=== PATIENT | male | born 1965 | race Caucasian/White ===

== ENCOUNTER 2017-10-31 18:34 | Inpatient (IN) | payer OTHER ==
[~2017-10-31] VITALS: Ht 175.2 cm; Wt 109.1 kg
--- NOTE | ~2017-10-31 | CON ---
[place], [place] REPORT OF CONSULTATION NAME: DEVIN MORGAN UNIT #: [id number] ROOM: [place] [address] DOCTOR: GRICELDA ABRAHAM MD BIRTHDATE: [birth year] DOS: 11/02/2017 CHIEF COMPLAINT: "Doc, I researched how to kill myself, I was going to do it." HISTORY OF PRESENT ILLNESS: This is a 52-year-old white male who reports that he came to the hospital to prevent himself from committing suicide. He has been feeling very depressed for several months now. He denies previous psychiatric intervention. There are no previous psych hospitalizations and he has never been on any antidepressants. He traces much of his problems to his history of alcohol abuse and states that he has lost many friends jobs, etc. because of his alcohol abuse. 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 Additionally, he has had strong suicidal thoughts with a plan. He did tie a belt around his neck, but could not figure out how to hang himself with it. He also researched online how to make a toxic mixture of chemicals and was going to go to the store and buy them until he decided that he needed to reach out and get help. He is very motivated per his report at this time to turn things around. PAST MEDICAL HISTORY: Remarkable for coronary artery disease and a history of both cocaine and marijuana abuse along with the alcohol abuse. MENTAL STATUS: The patient is alert and oriented. Mood is overwhelmingly depressed. Affect is flat and blunted with a constricted range. He endorses multiple neurovegetative symptoms and positive suicidal thoughts and a plan. There is no jordan or hypomania. There are no overt auditory or visual hallucinations. No delusions, no paranoia. Short, intermediate and long-term memories are fully intact. DIAGNOSIS: Major depression, recurrent. PLAN: I will start him on Remeron 15 mg at bedtime as an antidepressant that will rapidly improve sleep and appetite. I will add Vistaril 50 mg t.i.d. to decrease his anxiety without utilizing a benzodiazepine. Screening examinations on admission shows him to have a low vitamin D level, so I will go ahead and order vitamin D 50,000 International Units weekly. Would suggest that you reach out to the local general psychiatric units to find an appropriate placement for him and have him admitted there. [place], [place] REPORT OF CONSULTATION NAME: DEVIN MORGAN UNIT #: [id number] ROOM: [place] [address] DOCTOR: GRICELDA ABRAHAM MD BIRTHDATE: [birth year] GRICELDA ABRAHAM MD CM:CONSTR:REPORT OF CONSULTATION 1001 11/02/17 1032 interface
--- NOTE | ~2017-10-31 | CON ---
[place], [place] REPORT OF CONSULTATION NAME: DEVIN MORGAN UNIT #: [id number] ROOM: [place] [address] DOCTOR: FANTA STEARNS,ENRICO BIRTHDATE: [birth year] DOS: CHIEF COMPLAINT: "I don't feel safe if discharged." HISTORY OF PRESENT ILLNESS: The patient is a 52-year-old male admitted to ICU with depression and suicidal ideation with plan and intent to hang himself or use some chemicals to kill himself. He was seen by Dr. Moody yesterday and is started on Remeron. Today, I saw him again. He is still very depressed, still suicidal with a plan and intent and he does not contract for safety. Dr. Moody had recommended admission to a psych unit for his safety and stabilization. MENTAL STATUS EXAMINATION: The patient is lying in bed, readily engaged in conversation, fair eye contact. Mood overwhelmingly depressed. Affect blunted, constricted and no evidence of psychosis, still feeling hopeless and has suicidal ideation with intent and plan to hang himself or use chemicals and he cannot contract for safety. PLAN: The patient needs inpatient care for his safety and stabilization on meds, also address his alcohol use. He might need rehab for his alcohol dependence. Spoke to the staff and they are trying to get him to [facility] and they are working on getting him admitted. ENRICO JEWELL MD CM:CONSTR:REPORT OF CONSULTATION 1022 11/03/17 1037 interface
--- NOTE | ~2017-10-31 | CON ---
[place], [place] REPORT OF CONSULTATION NAME: DEVIN MORGAN UNIT #: [id number] ROOM: [place] [address] DOCTOR: CAMI LANDAEVRDE BIRTHDATE: [birth year] DOS: 11/06/2017 CHIEF COMPLAINT: Suicidal ideation. HISTORY OF PRESENT ILLNESS: The patient is a 52-year-old male who came to the Emergency Room on 10/31/2017 reporting he was syncopal earlier in the day. He reported he was on his couch and the next thing he knew he woke up and he was lying on the floor and knocked his table over. He did admit to numbness and tingling in his left arm and left leg along with left-sided chest pain. He did report he has had these symptoms in the past and they had been worked up at another hospital in [place] and there was a heart blockage, but he opted for medical treatment. He reports he did stop taking his cardiac medications about a year ago. The patient reports that he moved to this area "a while ago." He stated there is nothing here for him. 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 He stated after being fired from the bar, he stopped drinking 8 days prior to being admitted. He reports he has dealt with depression his entire life and has been treated for it; however, was unsure of where he had been treated. He states that if discharged from the hospital, he would commit suicide at this time. He stated he has looked online for several different options of ways to kill himself including putting a belt around his neck, which he had tried, but could not figure out how to hang up to the ceiling. He also admits to looking up for a lethal mixture of ammonia and bleach and how quickly that would kill him if the belt did not work. He also admits to looking into how to properly seal a bag over his head, so he would not be able to breathe if the other two options failed. At this time, he is suicidal. He admits to ideations. He has plans and backup plans for ending his life if discharged from the hospital. I do not believe he is safe to be discharged from the hospital. I did contact , nurse practitioner and leave her my opinion. DIAGNOSES: Suicidal ideation, major depressive disorder, severe. PAST MEDICAL HISTORY: Coronary artery disease, cocaine abuse, essential hypertension, hypercholesterolemia, marijuana abuse, neuropathy, and alcohol abuse. RECOMMENDATIONS: I recommend the patient remain inpatient at this time until proper placement can be found for treatment of his suicidal ideation. Nursing reports he has been polite and pleasant; however, with his elaborate plans and his definite answers of yes he would hurt himself upon discharge, he cannot be discharged to anywhere but an inpatient facility at this time. Thank you for the consultation. [place], [place] REPORT OF CONSULTATION NAME: DEVIN MORGAN UNIT #: [id number] ROOM: [place] [address] DOCTOR: CAMI LANDAVERDE BIRTHDATE: [birth year] MIKEY Andrade CM:CONSTR:REPORT OF CONSULTATION 1049 11/06/17 1126 interface
--- NOTE | ~2017-10-31 | ST ---
[place], [place] EXERCISE STRESS TEST REPORT [id number] UNIT #: [id number] ROOM: [place] [address] DOCTOR: TOMEKA POWELL MD BIRTHDATE: [birth year] DOS: 11/01/2017 REFERRING PHYSICIAN: Dr. Lange. INDICATION: Central chest pain. The patient then underwent standard protocol Lexiscan stress EKG. The patient's baseline EKG shows normal sinus rhythm with right bundle branch block and nonspecific ST-T wave changes. The patient's baseline heart rate is 86 with blood pressure 130/90. The patient's peak heart rate was 111 with a blood pressure of 130/76. The patient denied chest pain. No arrhythmias were noted. No EKG changes were noted. SUMMARY OF FINDINGS: Benign Lexiscan stress EKG. Please see separate report for perfusion scan results. TOMEKA POWELL MD CM:STRESS:EXERCISE STRESS TEST REPORT [id number] TOMEKA POWELL MD
[~2017-10-31 18:34] MED LIST: ALBUTEROL0.09 MG/A2 IH; CATAFLAM50 MG PO; CIPRO500 MG PO; DOXYCYCLINE100 M3 PO; METOPROLOL25 MG PO; MUCINEX600 MG PO; NATURE'S BLEND F1 MG PO; NKHM; VICODIN 5/500 505 MG PO
[2017-10-31 18:38] VITALS: BP 174/95
[2017-10-31 19:16] LABS: BASO # 0.1 10*3/uL (0.0-0.1); BASO % 0.9 % (0.0-1.0); EOS # 0.2 10*3/uL (0.0-0.4); EOS % 2.5 % (1.0-4.0); LYMPH # 1.5 10*3/uL (1.3-4.4); LYMPH % 21.6 % (27.0-41.0); MEAN CELL VOLUME 89.9 fl (80.0-94.0); MEAN CORPUSCULAR HGB 31.8 pg (27.0-31.0); MEAN CORPUSCULAR HGB CONC 35.4 g/dl (33.0-37.0); MEAN PLATELET VOLUME 9.8 fl (9.6-12.3); MONO # 0.7 10*3/uL (0.1-1.0); MONO % 9.7 % (3.0-9.0); NEUT # 4.4 10*3/uL (2.3-7.9); NEUT % 64.9 % (47.0-73.0); PLATELET COUNT AUTOMATED 202 10*3/uL (130-400); RED BLOOD COUNT 5.34 10*6/uL (4.50-5.90); RED CELL DISTRI WIDTH 12.6 % (0-14.5); WHITE BLOOD COUNT 6.7 10*3/uL (4.8-10.8)
[2017-10-31 19:25] LABS: INTERNATIONAL NORM RATIO 1.1 (2.0-3.5)
[2017-10-31 19:33] LABS: ALBUMIN 3.9 gm/dl (3.1-4.5); ALKALINE PHOSPHATASE 68 U/L (45-117); BUN 8 mg/dl (7-24); CHLORIDE 104 mmol/L (98-107); LIPASE 191 U/L (73-393); SGOT/AST 53 IU/L (3-35); SGPT/ALT 97 U/L (12-78); SODIUM 138 mmol/L (136-145); TOTAL PROTEIN 8.2 gm/dL (6.4-8.2)
[2017-10-31 19:34] LABS: ACETAMINOPHEN (TYLENOL) < 2.0 ug/ml (10-30); ETHYL ALCOHOL < 3.0 mg/dl (<3); TROPONIN I < 0.015 ng/ml (<0.045)
[2017-10-31 21:38] VITALS: BP 128/98
[2017-10-31 21:47] LABS: BILIRUBIN NEGATIVE (NEGATIVE); BLOOD NEGATIVE (NEGATIVE); CLARITY SL CLOUDY (CLEAR); COLOR YELLOW (YELLOW); GLUCOSE NEGATIVE (NEGATIVE); KETONE NEGATIVE (NEGATIVE); LEUKO ESTERASE NEGATIVE (NEGATIVE); NITRITE NEGATIVE (NEGATIVE); SPECIFIC GRAVITY <= 1.005 (1.005-1.030); URINE AMPHETAMINES < 1000 (1000ng/ml); URINE BARBITURATES < 200 (200ng/ml); URINE BENZODIAZEPINES < 200 (200ng/ml); URINE CANNABINOIDS (THC) < 50 (50ng/ml); URINE COCAINE < 300 (300ng/ml); URINE METHADONE < 300 (300ng/ml); URINE OPIATES < 300 (300ng/ml); URINE PHENCYCLIDINE < 25 (25ng/ml); UROBILINOGEN 0.2 E.U./dl (0.2-1.0)
[2017-10-31 22:00] VITALS: BP 125/87; BP 146/104
--- NOTE | 2017-10-31 22:00 | NUR ---
A 52, admitted to ICCU, under the services of COSMO Jacinto DO with a diagnosis of SUCIDIAL IDEATIONS. Chief complaint is TINGLING IN LEFT ARM, THOUGHTS OF SUICIDE. Patient arrived via ambulatory from ER. Monitor applied. Initial assessment completed. Vital signs taken and recorded. COSMO JACINTO DO notified of admission to the unit. Orders received. See assessment for past medical history, medications and allergies. Patient and/or family oriented to unit. [facility]U visitation policy reviewed. Clothing/patient valuable form completed. IGNACIO KHOURY
[2017-10-31 22:09] LABS: BACTERIA TRACE; RBC 0-2 rbc/hpf (0-2)
--- NOTE | 2017-10-31 23:00 | NUR ---
PATIENT STILL HAS THOUGHTS OF SUICIDE. STATED HE WAS GETTING TOGETHER AMMONIA AND CLOREX TO DO IT WITH. WHEN ASKED IF HE WAS GOING TO BLOW THE HOUSE UP, HE STATED NO I WOULDNT BLOW ANYTHING UP TO HURT THE NEIGHBORS. 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 PATIENT STATED HE IS FEELING THE SAME HE DID 3.5YRS AGO WHEN HE HAD A HEART CATH DONE IN [facility], OTHER THAN HE DIDNT FEEL SUICIDAL WHILE IN [facility]. PATIENT DID MENTION AN X AND THATS WHY HE CAME BACK HERE.
[2017-11-01] VITALS: BP 120/84
[2017-11-01 04:00] VITALS: BP 127/70
[2017-11-01 06:25] LABS: BASO # 0.1 10*3/uL (0.0-0.1); EOS # 0.2 10*3/uL (0.0-0.4); EOS % 3.1 % (1.0-4.0); LYMPH # 1.7 10*3/uL (1.3-4.4); LYMPH % 29.3 % (27.0-41.0); MEAN CELL VOLUME 91.5 fl (80.0-94.0); MEAN CORPUSCULAR HGB 32.5 pg (27.0-31.0); MEAN CORPUSCULAR HGB CONC 35.5 g/dl (33.0-37.0); MEAN PLATELET VOLUME 10.4 fl (9.6-12.3); MONO # 0.7 10*3/uL (0.1-1.0); MONO % 11.4 % (3.0-9.0); NEUT # 3.2 10*3/uL (2.3-7.9); NEUT % 54.9 % (47.0-73.0); PLATELET COUNT AUTOMATED 202 10*3/uL (130-400); RED BLOOD COUNT 4.59 10*6/uL (4.50-5.90); RED CELL DISTRI WIDTH 12.7 % (0-14.5); WHITE BLOOD COUNT 5.9 10*3/uL (4.8-10.8)
--- NOTE | 2017-11-01 06:25 | NUR ---
CONTACTED [facility] FOR CONSULT TO DR. ABRAHAM. RN WILL NOTIFY
[2017-11-01 06:26] LABS: HEMOGLOBIN 14.9 g/dl (14.0-18.0)
[2017-11-01 06:31] LABS: ALBUMIN 3.1 gm/dl (3.1-4.5); ALKALINE PHOSPHATASE 56 U/L (45-117); BUN 7 mg/dl (7-24); CHLORIDE 108 mmol/L (98-107); CHOLESTEROL 127 mg/dL (<200); CREATININE 1.04 mg/dL (0.70-1.30); HDL CHOLESTEROL 29 mg/dl (40-60); LDL CHOLESTEROL 75 mg/dL (9-159); PHOSPHOROUS 2.4 mg/dL (2.5-4.9); POTASSIUM 3.5 mmol/L (3.5-5.1); SGOT/AST 38 IU/L (3-35); SGPT/ALT 76 U/L (12-78); SODIUM 140 mmol/L (136-145); TOTAL PROTEIN 6.8 gm/dL (6.4-8.2); TRIGLYCERIDES 113 mg/dl (<150); VLDL CHOLESTEROL 23 mg/dL (6-40)
[2017-11-01 06:35] LABS: ACT PARTIAL THROMBO TIME 24.7 SECONDS (20.8-31.5); INTERNATIONAL NORM RATIO 1.2 (2.0-3.5)
[2017-11-01 07:12] LABS: VITAMIN D, 25-HYDROXY 10.2 ng/mL (30-100)
[2017-11-01 08:00] VITALS: BP 132/93
--- NOTE | 2017-11-01 10:30 | NUR ---
PT TAKEN TO CARDIAC REHAB FOR STRESS TEST WITH DR POWELL.
--- NOTE | 2017-11-01 11:00 | NUR ---
INFORMED CONSENT OBTAINED FOR LEXISCAN NUCLEAR STRESS TEST WITH DR. POWELL. RESTING EKG RBBB WITH A RESTING HR OF 76 WITH BP OF 130/90. LUNGS CLEAR WITH SPO2 OF 98% ON ROOM AIR. PT COMPLETED A 1:00 LEXISCAN PROTOCOL RECEIVING LEXISCAN 0.4 MG IV OVER 10 SECONDS. HAD NO C/O FEELING OF SHORTNESS OF BREATH AND "WEIRD FEELING IN CHEST" THAT WAS RELIEVED IN RECOVERY. EKG NONDIAGNOSTIC WITH RBBB. HAD A PEAK 111 WITH BP OF 122/82. LAST RECOVERY HR OF 107 WITH BP OF 124/82. AWAITING SCANNING IN STABLE CONDITION.
--- NOTE | 2017-11-01 12:01 | NUR ---
PT REMAINS IN CARDIAC REHAB FOR STRESS TEST.
--- NOTE | 2017-11-01 12:10 | NUR ---
I LEFT A MESSAGE ON DR Karley ABRAHAM'S VOICE MAIL TO MAKE HIM AWARE OF CONSULT ORDER.
--- NOTE | 2017-11-01 12:30 | NUR ---
PT RETURNED TO ROOM FROM CARDIAC REHAB. DR ANDRADE IN TO SEE PT.
--- NOTE | 2017-11-01 15:49 | NUR ---
DR TRAMMELL UPDATED ON PT'S C/O STOMACH "BURNIMG". NEW ORDERS RECEIVED.
[2017-11-01 16:00] VITALS: BP 132/91
--- NOTE | 2017-11-01 16:25 | NUR ---
MEDICATED PT PER PRN ORDER WITH TYLENOL FOR C/O BACK PAIN THAT RATES 5/10 ON PAIN SCALE AND TUMS FOR C/O GI UPSET.
--- NOTE | 2017-11-01 17:27 | NUR ---
PT RESTING. EARLIER PRN MEDS EFFECTIVE.
[2017-11-01 20:00] VITALS: BP 130/83
--- NOTE | 2017-11-01 20:59 | NUR ---
24 HR chart check completed.
[2017-11-02] VITALS: BP 131/86
--- NOTE | 2017-11-02 03:00 | NUR ---
PATIENT WOKE UP COMPLAINTS OF WILD VIVID DREAMS. C/O FEELING CLAUSTROPHOBIC. CURTAINS FULLY OPENED. WILL CONTINUE TO MONITOR.
[2017-11-02 04:00] VITALS: BP 147/96
--- NOTE | 2017-11-02 07:50 | NUR ---
Shift chart check completed.
[2017-11-02 08:00] VITALS: BP 128/80
--- NOTE | 2017-11-02 08:12 | NUR ---
PATIENT SAID THAT HE HAD ANOTHER VERY VIVID DREAM LAST NIGHT. WHEN ASKED ABOUT IT HE SAID THAT IN THE DREAM HE WAS JUST AND IT WAS ALL BETTER. HE SAID IT FIXED EVERYTHING. PER THE PATIENT HE DID NOT SEE HOW HE JUST THAT HE WAS & IT WAS A SNESE OF COMFORT. PER THE PATIENT HE FEELS SAFE IN THE HOSPITAL BUT KNOWS THAT HE CANNOT DO THIS ON HIS OWN IF HE LEAVES. HE IS AFRAID IF HE LEAVES THAT HE WILL DO SOMETHING BECAUSE HE HAS NO JOB, HAS NO ONE TO CALL AND FEELS VERY VERY ALONE. HE SAID THAT HE REALLY NEEDS TO TALK TO SOMEONE, THAT HE IS 52 AND REALLY DOES NOT WANT TO YET. HE IS WANTING TO TALK TO SOMEONE AND IS REQUESTING AN IN-PATIENT TREATMENT CENTER (WHEN ASKED IF HE WAS INTERESTED IF IT COULD BE ARRANGED) AT THIS TIME. AWAITING DR ABRAHAM TO COME (MESSAGE LEFT WITH [employer] STAFF ABOUT CONSULT).
--- NOTE | 2017-11-02 10:00 | NUR ---
Dr Moody here and medications ordered after speaking with the patient. Dr Moody agreed that in-patient treatment is warranted. Call placed to Tamara Grimes and she called back
--- NOTE | 2017-11-02 10:06 | NUR ---
call placed to Cardiology to OK medications ordered by Dr Moody.
--- NOTE | 2017-11-02 11:02 | NUR ---
recieved a consult on this client and he is voicing suicidal thoughts with a plan, i will search for an inpatient bed for this client.
[2017-11-02 12:00] VITALS: BP 130/87
[2017-11-02 16:00] VITALS: BP 132/74
--- NOTE | 2017-11-02 16:23 | NUR ---
ONCE AGAIN THE PATIENT VERY RESTLESS/AGGITATED. OGT PLACED ON LOW CONTINUOUS SUCTION AND 150cc DK BROWN/RED LIQUID DRAINAGE OBTAINED.
[2017-11-02 20:00] VITALS: BP 129/87
[2017-11-03] VITALS (7 sets, daily range): BP systolic 106–129; BP diastolic 74–86
--- NOTE | 2017-11-03 00:52 | NUR ---
24 HR chart check completed.
[2017-11-03 06:05] LABS: BASO # 0.1 10*3/uL (0.0-0.1); BASO % 0.9 % (0.0-1.0); EOS # 0.2 10*3/uL (0.0-0.4); EOS % 3.9 % (1.0-4.0); HEMATOCRIT 40.4 % (42.0-52.0); HEMOGLOBIN 14.1 g/dl (14.0-18.0); LYMPH # 1.9 10*3/uL (1.3-4.4); MEAN CELL VOLUME 90.2 fl (80.0-94.0); MEAN CORPUSCULAR HGB 31.5 pg (27.0-31.0); MEAN CORPUSCULAR HGB CONC 34.9 g/dl (33.0-37.0); MEAN PLATELET VOLUME 10.4 fl (9.6-12.3); MONO # 0.6 10*3/uL (0.1-1.0); MONO % 10.5 % (3.0-9.0); NEUT # 2.8 10*3/uL (2.3-7.9); NEUT % 50.3 % (47.0-73.0); PLATELET COUNT AUTOMATED 197 10*3/uL (130-400); RED BLOOD COUNT 4.48 10*6/uL (4.50-5.90); RED CELL DISTRI WIDTH 12.4 % (0-14.5); WHITE BLOOD COUNT 5.6 10*3/uL (4.8-10.8)
--- NOTE | 2017-11-03 09:21 | NUR ---
DR BUSH IN TO SEE PT.
--- NOTE | 2017-11-03 10:03 | NUR ---
IVF'S DC'D PER DR Marco DARLING ORDER.
--- NOTE | 2017-11-03 10:22 | NUR ---
PT MEDICATED WITH TYLENOL 650MG PO FOR C/O BACK PAIN. I ENCOURAGED PT TO GET OUT OF BED IN TO RECLINER CHAIR WHICH HE STATED HE WILL IN A FEW MINUTES.
--- NOTE | 2017-11-03 10:54 | NUR ---
I SPOKE WITH SELWYN BALTAZAR AND SHE STATED SHE IS CURRENTLY WORKING ON TRYING TO GET AN INPT PSYCH FACILITY THAT WILL ACCEPT PT.
--- NOTE | 2017-11-03 19:13 | NUR ---
24 HR chart check completed.
[2017-11-04 04:00] VITALS: BP 127/89
[2017-11-04 08:00] VITALS: BP 149/96
--- NOTE | 2017-11-04 08:04 | NUR ---
PT C/O HAVING INCREASED ANXIETY TODAY AFTER WAKING UP AT 3AM WITH VIVID DREAMS ABOUT PEOPLE HE HASNT SEEN IN 30 YEARS. PT STATES HE STILL IS HAVING THOUGHTS OF SUICIDE BECAUSE HE DOESNT HAVE ANY FAMILY OR FRIENDS THAT HE KEEPS IN TOUCH WITH AND HE IS JUST TIRED OF LIVING.
--- NOTE | 2017-11-04 09:19 | NUR ---
SELWYN BALTAZAR IN TO SPEAK WITH PT.
--- NOTE | 2017-11-04 09:35 | NUR ---
PT MEDICATED WITH ATIVAN 1MG PO FOR C/O INCREASED ANXIETY TODAY.
--- NOTE | 2017-11-04 09:47 | NUR ---
met with client, i have been searching for an inpatient psych bed since sunday and there are no beds for medicaid and [facility] declined because he has no support and they feel they are too far away, daisha felt he needed a pica bed and they have none, elisabeth felt that he needed a dual unit, i spoke with client, he tells me he wants to live, but he is afraid to go home because he has no one, no car, he has lost everything and i spoke with him about how an inpatient psych may not be exactly what he needs because they will give him meds but not address his social concerns or his alcohol abuse which he is telling me is the main issue and what has caused all of his issues, i told him that i am going to look into some treatment options in addition to the inpatient psych and see if there is anything for him, he also told me he lives in [facility]. i will work on this further.
[2017-11-04 12:00] VITALS: BP 117/72
[2017-11-04 16:00] VITALS: BP 100/58
[2017-11-04 20:00] VITALS: BP 102/70
--- NOTE | 2017-11-04 20:16 | NUR ---
PT. RESTING IN BED, WATCHING TV. HEP LOCK IN LH ASYMPT. LUNGS DIMINISHED BUT CLEAR BILAT, PULSE OX 94% ON RA. ABDOMEN SOFT, NONDISTENDED AND NORMO. NO PERIPHERAL EDEMA NOTED. PT. DENIES SUICIDAL IDEATION, BUT DOES COMPLAINTS OF ANXIETY. RESP. EASY AND REG NO DISTRESS. DONALDO BRYANT, RN
[2017-11-05] VITALS: BP 106/69
[2017-11-05 08:00] VITALS: BP 114/86
--- NOTE | 2017-11-05 08:43 | NUR ---
SKIP WILLINGHAM IN TO SEE PT. UPDATED HER ON PT'S PLAN OF CARE. ALSO NOTIFIED HER PT IS STILL VOICING SUICIDAL THOUGHTS. PT REQUESTING TO SPEAK WITH SELWYN BALTAZAR AGAIN. WILL CALL AND NOTIFY HER.
--- NOTE | 2017-11-05 09:56 | NUR ---
SPOKE WITH SELWYN BALTAZAR R/T PT'S PLACEMENT. SHE IS STILL TRYING TO PLACE PT. SHE SAID HE MIGHT HAVE TO GO TO A STATE HOSP. AND SHE SOULD HAVE TO GO TO COURT FOR THAT. NOTIFIED SELWYN THAT PT IS REQUESTING TO SEE HER. SELWYN STATED SHE WILL COME IN TO SEE PT LATER TODAY. PT UPDATED.
--- NOTE | 2017-11-05 11:14 | NUR ---
met with client to reassess and he had requested to see me, i have looked for a bed for this client both inpatient psych, dual units and just alcohol rehab, but i have not found him a bed, i am now talking to [facility] about a possible referral to [facility], which will involve going to probate court, i am waiting for them to call me back. i did discuss with client and he wants to go anywhere as he does not feel like he can go home, he keeps saying that he has no where to get anywhere for outpatient and i did explain to him that any inpatient stay will be time limited and he will still have to return to his home and situation.
[2017-11-05 12:00] VITALS: BP 122/88
[2017-11-05 16:00] VITALS: BP 93/66
--- NOTE | 2017-11-05 16:32 | NUR ---
PT RESTING. NO DISTRESS NOTED AT THIS TIME.
--- NOTE | 2017-11-05 19:59 | NUR ---
PT. RESTING IN BED, PREVIOUSLY UP IN CHAIR. UP AD GINNY, GAIT STEADY. HEP LOCK IN LH ASYMPT. LUNGS REMAINS CLEAR BUT DIMINISHED BILAT, ABDOMEN SOFT, NONDISTENDED AND NORMO. TRACE BILAT LOWER EXTR EDEMA NOTED. TYLENOL GIVEN AT 1940 FOR COMPLAINTS OF BACK DISCOMFORT FROM LAYING IN BED. DONALDO BRYANT RN
[2017-11-05 20:00] VITALS: BP 99/70
--- NOTE | 2017-11-05 21:12 | NUR ---
PT. STATED TYLENOL WAS MILDLY EFFECTIVE.
[2017-11-06] VITALS: BP 93/53
[2017-11-06 08:00] VITALS: BP 130/80
--- NOTE | 2017-11-06 09:09 | NUR ---
PT MEDICATED WITH ATIVAN 1MG PO FOR C/O INCREASED ANXIETY TODAY.
--- NOTE | 2017-11-06 10:44 | NUR ---
DR RUDD AWARE OF CONSULT ORDER AND HIS REGIONAL PROJECT MANAGER IN TO SPEAK WITH PT AT THIS TIME.
--- NOTE | 2017-11-06 11:50 | NUR ---
PT RESTING QUIETLY AT THIS TIME. ATIVAN EFFECTIVE.
[2017-11-06 12:00] VITALS: BP 129/85
[2017-11-06 16:00] VITALS: BP 104/65
[2017-11-06 20:00] VITALS: BP 99/59
--- NOTE | 2017-11-06 20:13 | NUR ---
PT. RESTING IN BED, DOES NOT EXPRESSE SUICIDE IDEATION AT THIS TIME, STATES JUST ANXIOUS. NO HEP LOCK NOTED. LUNGS CLEAR BUT DIMINISHED BILAT, PULSE OX 97% ON RA. ABDOMEN SOFT, NONDISTENDED AND NORMO. NO PERIPHERAL EDEMA NOTED. RESP. EASY AND REG, NO DISTRESS.
[2017-11-07] VITALS: BP 105/61
[2017-11-07 05:22] LABS: CREATININE 1.16 mg/dL (0.70-1.30)
[2017-11-07 05:54] LABS: BASO % 0.6 % (0.0-1.0); EOS # 0.2 10*3/uL (0.0-0.4); EOS % 3.2 % (1.0-4.0); HEMATOCRIT 45.6 % (42.0-52.0); HEMOGLOBIN 15.8 g/dl (14.0-18.0); LYMPH # 1.9 10*3/uL (1.3-4.4); LYMPH % 28.5 % (27.0-41.0); MEAN CELL VOLUME 91.2 fl (80.0-94.0); MEAN CORPUSCULAR HGB 31.6 pg (27.0-31.0); MEAN CORPUSCULAR HGB CONC 34.6 g/dl (33.0-37.0); MEAN PLATELET VOLUME 10.9 fl (9.6-12.3); MONO # 0.5 10*3/uL (0.1-1.0); MONO % 7.6 % (3.0-9.0); NEUT # 3.9 10*3/uL (2.3-7.9); NEUT % 59.6 % (47.0-73.0); PLATELET COUNT AUTOMATED 243 10*3/uL (130-400); RED CELL DISTRI WIDTH 12.3 % (0-14.5); WHITE BLOOD COUNT 6.6 10*3/uL (4.8-10.8)
[2017-11-07 08:00] VITALS: BP 131/84
--- NOTE | 2017-11-07 09:39 | NUR ---
MEDICATED PT PER PRN ORDER WITH ATIVAN FOR PT'S C/O ANXIETY. SKPI WILLINGHAM CNP, IN TO SEE PT EARLIER.
--- NOTE | 2017-11-07 10:20 | NUR ---
PT STATES RELIEF OF ANXIETY WITH EARLIER ATIVAN.
[2017-11-07 12:00] VITALS: BP 109/76
--- NOTE | 2017-11-07 12:12 | NUR ---
PT RESTING. LUNCH ORDERED.
--- NOTE | 2017-11-07 14:11 | NUR ---
SELWYN SALGUERO CALLED IN AND STATED THAT [facility] WILL NOT HAVE A BED FOR THE PT UNTIL TOMORROW BUT IF ANYTHING CHANGES SHE WILL NOTIFY US. PT UPDATED.
[2017-11-07 16:00] VITALS: BP 95/67
--- NOTE | 2017-11-07 16:48 | NUR ---
PT RESTING. NO ACUTE DISTRESS NOTED.
--- NOTE | 2017-11-07 19:01 | NUR ---
24 HR chart check completed.
[2017-11-07 21:14] VITALS: BP 94/60
[2017-11-08] VITALS: BP 91/55
[2017-11-08 06:05] LABS: ALBUMIN 3.3 gm/dl (3.1-4.5); ALKALINE PHOSPHATASE 55 U/L (45-117); BUN 13 mg/dl (7-24); CHLORIDE 105 mmol/L (98-107); CREATININE 1.11 mg/dL (0.70-1.30); POTASSIUM 4.8 mmol/L (3.5-5.1); SGOT/AST 29 IU/L (3-35); SGPT/ALT 52 U/L (12-78); SODIUM 140 mmol/L (136-145); TOTAL PROTEIN 7.1 gm/dL (6.4-8.2)
[2017-11-08 06:08] LABS: BASO # 0.1 10*3/uL (0.0-0.1); BASO % 0.9 % (0.0-1.0); EOS # 0.2 10*3/uL (0.0-0.4); EOS % 3.9 % (1.0-4.0); HEMATOCRIT 44.9 % (42.0-52.0); HEMOGLOBIN 15.5 g/dl (14.0-18.0); LYMPH # 1.5 10*3/uL (1.3-4.4); LYMPH % 26.8 % (27.0-41.0); MEAN CELL VOLUME 92.2 fl (80.0-94.0); MEAN CORPUSCULAR HGB 31.8 pg (27.0-31.0); MEAN CORPUSCULAR HGB CONC 34.5 g/dl (33.0-37.0); MEAN PLATELET VOLUME 10.7 fl (9.6-12.3); MONO # 0.5 10*3/uL (0.1-1.0); MONO % 8.8 % (3.0-9.0); NEUT # 3.4 10*3/uL (2.3-7.9); NEUT % 59.2 % (47.0-73.0); PLATELET COUNT AUTOMATED 225 10*3/uL (130-400); RED BLOOD COUNT 4.87 10*6/uL (4.50-5.90); RED CELL DISTRI WIDTH 12.1 % (0-14.5); WHITE BLOOD COUNT 5.7 10*3/uL (4.8-10.8)
[2017-11-08 08:00] VITALS: BP 112/77
--- NOTE | 2017-11-08 08:00 | NUR ---
caterina was able to work out details with the [facility] late on to allow client to be referred to [facility] as [facility] never returned my phone calls as client was asking me to go to inpatient alcohol treatment as he feels that is the underlying problem, i did fill out the paperwork and took it to court yesterday, spoke with [facility] and they have a waiting list but hope to have a bed today, then the court will be notified and the order will be conveyed and served to client. will continue to follow.
--- NOTE | 2017-11-08 09:28 | NUR ---
PT CONTINUES TO VOICE HAVING SUICIDAL THOUGHTS AND IDEAS. PT DOES ALSO C/O DEPRESSION.
--- NOTE | 2017-11-08 10:11 | NUR ---
MEDICATED PT PER PRN ORDER WITH ATIVAN FOR C/O ANXIETY.
--- NOTE | 2017-11-08 11:00 | NUR ---
PT RESTING. EARLIER ATIVAN EFFECTIVE.
[2017-11-08 12:00] VITALS: BP 112/80
--- NOTE | 2017-11-08 14:06 | NUR ---
SPOKE WITH SELWYN BALTAZAR R/T PT'S DISCHARGE TO [facility]. SELWYN STATED SHE HAD CALLED THIS AM AND LEFT A MESSAGE AT [facility] BUT NOONE HAS CALLED HER BACK YET.
[2017-11-08 18:00] VITALS: BP 96/65
--- NOTE | 2017-11-08 19:35 | NUR ---
SELWYN BRAVO CALLED IN STATING PATIENT HAS A BED ASSIGNMENT AND WILL BE ABLE TO BE TRANSFERRED TOMORROW ONCE COORDINATED WITH THE COURTS. SHANE VELARDE RN
--- NOTE | 2017-11-08 19:46 | NUR ---
24 HR chart check completed.
[2017-11-08 20:00] VITALS: BP 92/60
--- NOTE | 2017-11-08 20:00 | NUR ---
PATIENT LYING IN BED, STATED HE WANTED TO GET THE F&*%$ OUT OF HERE. TOLD SAMANTHA THAT [facility] HAS A ROOM READY, HE STATED THEY HAVE BEEN SAYING THAT FOR DAYS. PATIENT ALSO STATED THAT HE WOULD LIKE ATIVAN AT BEDTIME TO HELP HIM SLEEP. WILL GIVE LATER TONIGHT. WILL CONTINUE TO MONITOR.
[2017-11-09 04:45] LABS: BASO % 0.5 % (0.0-1.0); EOS # 0.2 10*3/uL (0.0-0.4); EOS % 3.4 % (1.0-4.0); HEMATOCRIT 44.5 % (42.0-52.0); HEMOGLOBIN 15.6 g/dl (14.0-18.0); LYMPH # 1.7 10*3/uL (1.3-4.4); LYMPH % 25.3 % (27.0-41.0); MEAN CELL VOLUME 91.4 fl (80.0-94.0); MEAN CORPUSCULAR HGB CONC 35.1 g/dl (33.0-37.0); MEAN PLATELET VOLUME 10.3 fl (9.6-12.3); MONO # 0.5 10*3/uL (0.1-1.0); MONO % 8.1 % (3.0-9.0); NEUT # 4.1 10*3/uL (2.3-7.9); NEUT % 62.2 % (47.0-73.0); PLATELET COUNT AUTOMATED 232 10*3/uL (130-400); RED BLOOD COUNT 4.87 10*6/uL (4.50-5.90); RED CELL DISTRI WIDTH 12.1 % (0-14.5); WHITE BLOOD COUNT 6.5 10*3/uL (4.8-10.8)
[2017-11-09 04:58] LABS: BUN 13 mg/dl (7-24); CHLORIDE 105 mmol/L (98-107); CREATININE 1.12 mg/dL (0.70-1.30); PHOSPHOROUS 2.8 mg/dL (2.5-4.9); POTASSIUM 4.9 mmol/L (3.5-5.1); SODIUM 139 mmol/L (136-145)
[2017-11-09 08:00] VITALS: BP 150/99
--- NOTE | 2017-11-09 08:20 | NUR ---
RESTING COMFORTABLY AT THIS TIME. PLEASANT. BP 150/99. PULSE OX 96% ON ROOM AIR. LUNGS CLEAR BILATERALLY. NO EDEMA NOTED. SHOWERED AND PLACED IN CHAIR.
--- NOTE | 2017-11-09 10:20 | NUR ---
SPOKE WITH SELWYN BALTAZAR. A BED IS AVAILABLE AT [facility]. PHONE NUMBER PROVIDED AND NURSE TO NURSE REPORT GIVEN.
--- NOTE | 2017-11-09 11:12 | NUR ---
HERE TO SERVE PATIENT WITH COURT ORDERED PAPERS TO [facility]. JAIME HERE TO TRANSPORT PATIENT.
== END 2017-11-09 11:12 | disposition home health service (06) | DRG 206 ==
LOC: ED 18:34 → ICCU 20:54 → EDHOLD 20:54 → ICCU 21:13
PROVIDERS: Family Medicine; Internal Medicine Nephrology; Physician Assistant; Registered Nurse; ADMIT Internal Medicine
PROC: 4A02XM4 Measurement of Cardiac Total Activity, External Approach (ICD-10-PCS; principal; 2017-11-01)
PROC: 3E073KZ Introduction of Other Diagnostic Substance into Coronary Artery, Percutaneous Approach (ICD-10-PCS; 2017-11-01)
DX: M94.0 Chondrocostal junction syndrome [Tietze] (principal); R45.851 Suicidal ideations; F33.2 Major depressive disorder, recurrent severe without psychotic features; G62.9 Polyneuropathy, unspecified; R55 Syncope and collapse; F14.10 Cocaine abuse, uncomplicated; F10.10 Alcohol abuse, uncomplicated; E55.9 Vitamin D deficiency, unspecified; E78.00 Pure hypercholesterolemia, unspecified; I25.10 Atherosclerotic heart disease of native coronary artery without angina pectoris; R74.0 Nonspecific elevation of levels of transaminase and lactic acid dehydrogenase [LDH]; I10 Essential (primary) hypertension; R00.0 Tachycardia, unspecified; R73.9 Hyperglycemia, unspecified; R73.03 Prediabetes; F41.9 Anxiety disorder, unspecified; Z80.0 Family history of malignant neoplasm of digestive organs; Z83.6 Family history of other diseases of the respiratory system; Z82.49 Family history of ischemic heart disease and other diseases of the circulatory system